=== PATIENT | male | born 1975 | race Caucasian/White ===

== ENCOUNTER → 2019-11-27 | Day surgery (SDC) | payer OTHER ==
[~2019-11-27] MED LIST: Glycopyrrolate 0.2 MG/ML 2 ML SDV IVPUSH ONE; HYDROmorphone 0.5 MG/0.5 ML Syringe IVPUSH ONE; LORazepam 2 MG/ML SDV IVPUSH ONE; Pantoprazole 40 MG Vial IVPUSH ONE; Propofol 200 MG/20 ML SDV ONE; Sodium Chloride 0.9% 1,000 ML IV SCH; fentaNYL 100 MCG/2 ML SDV ONE
--- NOTE | 2019-11-27 01:07 | EDM.PDOC ---
ED HPI GENERAL MEDICAL PROBLEM - General Chief Complaint: Gastrointestinal Problem Stated Complaint: TROUBLE SWOLLING Time Seen by Provider: 11/27/19 01:00 Source of Information: Reports: Patient, Family History Limitations: Reports: No Limitations - History of Present Illness INITIAL COMMENTS - FREE TEXT/NARRATIVE: 44-year-old otherwise healthy male has had an esophageal foreign body for the past 6 hours. He was eating ribs when something got stuck in his distal esophagus and now he cannot swallow any fluids or saliva. He has a persistent pressure sensation, it is uncomfortable. No shortness of breath fever. This has happened in the past but it has always resolved fairly quickly. Onset: Sudden Duration: Hour(s): (6 hours ago) Associated Symptoms: Reports: No Other Symptoms Epigastric Pain Score (Numeric/FACES): 3 - Related Data Allergies Allergy/AdvReac Type Severity Reaction Status Date / Time Fish Containing Products Allergy Swelling Verified 11/27/19 00:53 Home Meds: Home Meds NK [No Known Home Meds] 11/27/19 [History] Past Medical History Musculoskeletal History: Reports: Fracture Other Musculoskeletal History: leg - Infectious Disease History Infectious Disease History: Reports: Chicken Pox Social & Family History - Tobacco Use Smoking Status *Q: Never Smoker Second Hand Smoke Exposure: No - Caffeine Use Caffeine Use: Reports: Coffee, Tea - Alcohol Use Days Per Week of Alcohol Use: 4 Number of Drinks Per Day: 3 Total Drinks Per Week: 12 - Recreational Drug Use Recreational Drug Use: No ED ROS GENERAL - Review of Systems Review Of Systems: See Below Constitutional: Denies: Fever, Chills Respiratory: Denies: Shortness of Breath Cardiovascular: Denies: Chest Pain GI/Abdominal: Reports: Abdominal Pain (Upper abdomen), Vomiting (Has emesis after trying to drink or eat) Neurological: Reports: No Symptoms ED EXAM, GI/ABD - Physical Exam Exam: See Below Exam Limited By: No Limitations General Appearance: Alert, No Apparent Distress (Looks uncomfortable but not distressed) Eyes: Bilateral: Normal Appearance Respiratory/Chest: No Respiratory Distress (No jaundice) GI/Abdominal Exam: Tender (Some mild discomfort to palpation of the upper abdomen but no focal tenderness or guarding) Neurological: Alert, Oriented Psychiatric: Normal Affect, Normal Mood Skin Exam: Warm, Dry Course - Vital Signs Last Recorded V/S: Last Vital Signs Temp 97.1 F 11/27/19 02:51 Pulse 101 H 11/27/19 02:51 Resp 16 11/27/19 02:51 BP 141/82 H 11/27/19 02:51 Pulse Ox 97 11/27/19 02:51 - Orders/Labs/Meds Meds: Medications Discontinued Medications Generic Name Dose Route Start Last Admin Trade Name Laura PRN Reason Stop Dose Admin Hydromorphone HCl 0.5 mg 11/27/19 01:34 11/27/19 01:49 Dilaudid IVPUSH 11/27/19 01:35 0.5 mg ONETIME ONE Administration Sodium Chloride 1,000 mls @ 1,000 mls/hr 11/27/19 01:45 11/27/19 01:47 Normal Saline IV 1,000 mls/hr ASDIRECTED SALVADOR Administration Lorazepam 0.5 mg 11/27/19 01:34 11/27/19 01:50 Ativan IVPUSH 11/27/19 01:35 0.5 mg ONETIME ONE Administration - Re-Assessments/Exams Free Text/Narrative Re-Assessment/Exam: 11/27/19 01:07 He was given a swallow of Coca-Cola and observed for several minutes. 11/27/19 01:41 The Coke was unsuccessful, an IV was started and the patient was given 0.5 mg of Dilaudid, 0.5 mg of IV Ativan and 1 L bolus of normal saline. If this is unsuccessful the option of hospitalization versus returning in the morning for an EGD will be discussed. 11/27/19 02:56 Unfortunately after 45 minutes of giving the medication and a full liter of fluid, patient still had esophageal obstruction. Discussed with Dr. Romero, and he will have the patient return at 730 to 8:00 AM for an EGD. Patient will call the hospital and let us know if it passes before that time and they are not planning on returning. Departure - Departure Time of Disposition: 03:10 Disposition: Home, Self-Care 01 Clinical Impression: Esophageal foreign body Qualifiers: Encounter type: initial encounter Qualified Code(s): T18.108A - Unspecified foreign body in esophagus causing other injury, initial encounter - Discharge Information Instructions: Swallowed Foreign Body, Adult, [id number] Referrals: PCP,None [Primary Care Provider] - Forms: ED Department Discharge Care Plan Goals: Return tomorrow morning at 7:30 AM to register for EGD by Dr. Romero, call the hospital if foreign body passes. Consider rechecking when home despite not needing to return to the hospital later today. Sepsis Event Note (ED) - Evaluation Sepsis Screening Result: No Definite Risk - Focused Exam Vital Signs: Vital Signs Temp Pulse Resp BP Pulse Ox 11/27/19 02:51 97.1 F 101 H 16 141/82 H 97 11/27/19 00:58 97.3 F 68 16 142/83 H 94 L 11/27/19 00:46 97.3 F 68 16 142/83 H 94 L
--- NOTE | 2019-11-28 13:53 | OR ---
DATE OF PROCEDURE: 11/27/2019 SURGEON: Barrett Romero MD PREOPERATIVE DIAGNOSIS: Obstructing foreign body within the esophagus. POSTOPERATIVE DIAGNOSES: 1. Obstructing foreign body within the esophagus. 2. Stricture at esophagogastric junction likely related to gastroesophageal reflux disease. OPERATIVE PROCEDURES: Upper GI endoscopy with: 1. Removal of foreign body within the mid and distal esophagus (82154). 2. Dilation of esophagogastric junction (71739). ANESTHESIA: IV sedation. INDICATIONS FOR PROCEDURE: This is a 44-year-old male presenting with obstructing foreign body. He believes this is ingested pork. He has had problems with some dysphagia before but never to this extent. He is not aware of any symptoms suggestive of gastroesophageal reflux disease. Plan is to proceed with upper GI endoscopy with removal of foreign body and dilation as indicated. Potential risks of the procedure including bleeding, infection, aspiration of the ingested contents were reviewed, and the patient wishes to proceed. PROCEDURE IN DETAIL: The patient was taken to the operating room, placed in a left lateral decubitus position. IV sedation was administered, after which the upper GI endoscope was passed orally into the mid esophagus. At that level, some meat was encountered. This was consistent with a history of ingested pork. Initially, using 3-prong grasper, several chunks of the meat were removed. Following this, we were able to get a Savory dilator and wire into the stomach, and with this, the esophagogastric junction was dilated to a 36- [place]. Upon removal of the dilator and wire, the gastroscope was then reinserted and the remainder of the ingested food was then pushed into the stomach. The area of esophagogastric junction had some acute bruising-type look, likely due to the pressure of the food being impacted there. Otherwise, he had a background suggestive of gastroesophageal reflux disease. We opted not to do any biopsies at this time. Plan will be to start the patient on Protonix, to be given 40 mg IV in the recovery room, then 40 mg daily. He will be instructed to stay on a full liquid diet for 3 days and then advance to soft solids. He should probably be checking with his primary care physician in perhaps 2 weeks. It would be prudent to have upper endoscopy repeated with biopsies and/or dilation in perhaps a month, which his physicians at home could set up. Barrett Romero MD /[id number]
== END ==
LOC: JP.ED 00:29 → JP.SDS 05:34
PROVIDERS: ATTEND Surgery
DX: K22.2 Esophageal obstruction (principal); T18.128A Food in esophagus causing other injury, initial encounter; Z11.59 Encounter for screening for other viral diseases; Z91.013 Allergy to seafood
CPT/HCPCS: 43247; 43248; 87635; 96361; 96374; 96375; 99284; C9113; J1170; J2060; J2704; J3010; J3490; J7030; U0002